=== PATIENT | female | born 1955 | race Caucasian/White ===

== ENCOUNTER 2016-09-26 03:16 | Inpatient (IN) | payer MEDICARE, BC ==
[2016-09-26] VITALS (361 sets, daily range): BP systolic 65–151; BP diastolic 42–85; PULSE 73–95; TEMP 97–98.8; O2SAT 82–100
[~2016-09-26] VITALS: Ht 162.6 cm; Wt 59.7 kg
[~2016-09-26 03:16] MED LIST: ASPIRIN 81M81 MG/TA2 PO; ASPIRIN E.C. 8181 MG PO; ATENOLOL; ATIVAN 1MG T1 MG/TAB PO; CIPRO 500MG TA500 MG PO; DILAUDID 2MG TAB2 MG PO; DILAUDID 4MG TAB4 MG PO; DULCOLAX S10 MG/SUPP RC; ELAVIL10 MG PO; ELAVIL100 MG PO; ELIQUIS 5MG PO; FENTANYL 25 MCG TD; FLAGYL500 MG PO; GAS-X80 MG PO; K-DUR20 MEQ PO; LASIX 40MG TABL40 MG PO; LEVAQUIN 5500 MG/TA1 PO; LEVOTHYROXINE PO; LINZESS290CAP PO; LOMOTIL 0.025 M1 TAB PO; LORAINT PO; MIRALAX PA17 GM/Dose PO; MIRALAX238G PO; MORPHINE 1515 MG/TAB PO; MULTIPLE VITAMI1 CAP PO; MULTIPLE VITAMI1 TA5 PO; MULTIPLE VITAMI1 TAB PO; MVI; NEXIUM 40MG40 MG PO; NEXIUM24HROTC PO; NORCO 325 MG-51 TAB PO; OXYCODONE; OXYCONTIN 80MG80 MG PO; PROBIOTIC-MAJOR PO; REGLAN 10MG/11 MG/ML PO; REGLAN 5MG T5 MG/TAB PO; ROXANOL 20MG20 MG/ML PO; ROXANOL 20MG20 MG/ML SL; ROXICODONE 55 MG/TAB PO; RT ALBUTER2.5 MG/0.5 IH; SENNA-LAX8.6 MG PO; SENOKOT8.6 MG PO; SYNTHROID 0.0.025 MG PO; SYNTHROID0.2 MG/TAB PO; TENORMIN 2525 MG/TAB PO; TENORMIN 5050 MG/TAB PO; TRANSDERM-0.5 MG/21 TD; ULTRAM 50MG TAB50 MG PO; ZANTAC 150MG T150 MG PO; ZOFRAN 4MG T4 MG/TAB PO; ZOFRAN8 MG PO; ZOLOFT 100MG100 MG PO; ZOLOFT 50MG50 MG PO; ZOLOFT50 MG PO
[2016-09-26 04:06] LABS: HEMOGLOBIN 12.4 g/dl (12.5-16.0); MEAN CELL VOLUME 94 fl (80.0-100.0); MEAN CORPUSCULAR HEMOGLOBIN 32 pg (27.0-31.0); MEAN CORPUSCULAR HGB CONC 34 g/dl (33.0-37.0); MEAN PLATELET VOLUME 10.6 fl (7.4-10.4); PLATELET COUNT 192 K/mm3 (130-400); RED BLOOD COUNT 3.87 M/mm3 (4.10-5.30); REDCELL DISTRIBUTION WIDTH-CV 14.2 % (11.5-14.5); WHITE BLOOD COUNT 4.4 K/mm3 (4.8-10.8)
[2016-09-26 04:09] LABS: HEMATOCRIT 36.5 % (37.0-47.0)
[2016-09-26 04:10] LABS: ADD PATHOLOGY DIFF REVIEW NO
[2016-09-26 04:19] LABS: ALBUMIN 2.7 gm/dL (3.5-5.0); BILIRUBIN,TOTAL 0.5 mg/dL (0.0-1.0); CREATININE, serum 1.32 mg/dL (0.52-1.25); POTASSIUM 3.5 mmol/L (3.4-5.0); TOTAL PROTEIN 5.2 gm/dL (6.4-8.2)
[2016-09-26 04:22] LABS: ADJUSTED CALCIUM 6.3 mg/dL (8.4-10.2); CALCIUM 5.3 mg/dL (8.4-10.2)
[2016-09-26 04:42] LABS: BAND 47 % (0-10); MYELOCYTE 1 % (0-0); NEUTROPHILS 19 % (42.0-75.2); TOTAL CELLS COUNTED 100
[2016-09-26 04:43] LABS: C-REACTIVE PROTEIN 14.1 mg/dL (0.0-0.9)
[2016-09-26 05:15] LABS: VENOUS BLOOD GAS BE -10.9 (-4-4); VENOUS BLOOD GAS SAO2 64.9 % (60-80); VENOUS BLOOD GAS SITE CENTRAL LINE
[2016-09-26 13:04] LABS: MEAN CORPUSCULAR HGB CONC 32 g/dl (33.0-37.0); MEAN PLATELET VOLUME 9.8 fl (7.4-10.4); PLATELET COUNT 105 K/mm3 (130-400); RED BLOOD COUNT 2.58 M/mm3 (4.10-5.30); REDCELL DISTRIBUTION WIDTH-CV 14.1 % (11.5-14.5)
[2016-09-26 13:52] LABS: ARTERIAL BLD GAS O2 SATURATION 98.5 % (92-100); ARTERIAL BLD GAS TCO2 CT 14.9; ARTERIAL BLOOD GAS BASE EXCESS -13.5 (-2-2); ARTERIAL BLOOD GAS HCO3 13.7 meq/L (22-26); ARTERIAL BLOOD GAS PHT 7.19 C (7.35-7.45)
[2016-09-26 13:53] LABS: ARTERIAL BLOOD GAS PO2 222.2 mmHg (80-100); ARTERIAL BLOOD GAS PO2T 222.2 (80-100); ARTERIAL BLOOD GAS pH 7.19 (7.35-7.45)
[2016-09-26 13:54] LABS: ABG VENTILATOR TIDAL VOLUME 500 mL; ATS? YES
[2016-09-26 13:55] LABS: ARTERIAL BLD GAS O2 SATURATION 98.7 % (92-100); ARTERIAL BLOOD GAS BASE EXCESS -9.3 (-2-2); ARTERIAL BLOOD GAS HCO3 14.3 meq/L (22-26); ARTERIAL BLOOD GAS PHT 7.38 C (7.35-7.45); ARTERIAL BLOOD GAS pH 7.38 (7.35-7.45); OXYHEMOGLOBIN 98.4 %
[2016-09-26 13:56] LABS: ABG VENTILATOR TIDAL VOLUME 500 mL; ARTERIAL BLOOD GAS PO2 252.6 mmHg (80-100); ARTERIAL BLOOD GAS PO2T 252.6 (80-100); ATS? YES
[2016-09-26 14:00] LABS: HEMATOCRIT 25.6 % (37.0-47.0); HEMOGLOBIN 8.2 g/dl (12.5-16.0); MEAN CELL VOLUME 99 fl (80.0-100.0); MEAN CORPUSCULAR HEMOGLOBIN 32 pg (27.0-31.0)
[2016-09-26 14:03] LABS: ADD PATHOLOGY DIFF REVIEW NO; WHITE BLOOD COUNT 1.9 K/mm3 (4.8-10.8)
[2016-09-26 14:20] LABS: BAND 46 % (0-10); METAMYELOCYTE 16 % (0-0); NEUTROPHILS 16 % (42.0-75.2); PLATELET ESTIMATE DECREASED (NORMAL)
[2016-09-26 14:23] LABS: TOTAL CELLS COUNTED 50; TOXIC GRANULATION PRESENT
[2016-09-26 14:52] LABS: CREATININE, serum 1.17 mg/dL (0.52-1.25); PHOSPHOROUS 3.5 mg/dL (2.5-4.5); POTASSIUM 3.6 mmol/L (3.4-5.0)
[2016-09-26 14:55] LABS: CALCIUM 4.1 mg/dL (8.4-10.2)
[2016-09-27] VITALS (1379 sets, daily range): BP systolic 94–144; BP diastolic 56–90; PULSE 81–88; TEMP 97.8–98.8; O2SAT 64–100
[2016-09-27 02:26] LABS: HEMATOCRIT 22.7 % (37.0-47.0)
[2016-09-27 03:46] LABS: HEMATOCRIT 26.4 % (37.0-47.0); HEMOGLOBIN 9.2 g/dl (12.5-16.0)
[2016-09-27 04:25] LABS: ALLEN TEST NO; ARTERIAL BLD GAS O2 SATURATION 97.3 % (92-100); ARTERIAL BLD GAS TCO2 CT 17.7; ARTERIAL BLOOD GAS HCO3 16.9 meq/L (22-26); ARTERIAL BLOOD GAS PHT 7.44 C (7.35-7.45); ARTERIAL BLOOD GAS PO2 109.2 mmHg (80-100); ARTERIAL BLOOD GAS PO2T 109.2 (80-100); ARTERIAL BLOOD GAS pH 7.44 (7.35-7.45); ATS? YES; OXYHEMOGLOBIN 96.6 %
[2016-09-27 05:41] LABS: MEAN CORPUSCULAR HGB CONC 35 g/dl (33.0-37.0); MEAN PLATELET VOLUME 10.6 fl (7.4-10.4); PLATELET COUNT 81 K/mm3 (130-400); RED BLOOD COUNT 2.91 M/mm3 (4.10-5.30); REDCELL DISTRIBUTION WIDTH-CV 14.9 % (11.5-14.5); WHITE BLOOD COUNT 2.1 K/mm3 (4.8-10.8)
[2016-09-27 05:44] LABS: ADD PATHOLOGY DIFF REVIEW NO; HEMOGLOBIN 9.2 g/dl (12.5-16.0); MEAN CELL VOLUME 89 fl (80.0-100.0); MEAN CORPUSCULAR HEMOGLOBIN 32 pg (27.0-31.0)
[2016-09-27 06:01] LABS: ALBUMIN 2.3 gm/dL (3.5-5.0); BILIRUBIN,TOTAL 0.8 mg/dL (0.0-1.0); CREATININE, serum 0.82 mg/dL (0.52-1.25); MAGNESIUM 1.8 mg/dL (1.6-2.3); PHOSPHOROUS 1.9 mg/dL (2.5-4.5); TOTAL PROTEIN 4.1 gm/dL (6.4-8.2)
[2016-09-27 06:08] LABS: BAND 34 % (0-10); NEUTROPHILS 24 % (42.0-75.2); TOTAL CELLS COUNTED 100
[2016-09-27 06:15] LABS: CALCIUM 4.6 mg/dL (8.4-10.2)
[2016-09-27 10:30] LABS: PH 5 (5-8); SQUAMOUS EPITHELIAL 0-2 /hpf; URINE APPEARANCE Clear; URINE BACTERIA None Seen /hpf; URINE BILIRUBIN Negative (NEGATIVE); URINE BLOOD 1+ (NEGATIVE); URINE COLOR Yellow; URINE GLUCOSE Negative (NEGATIVE); URINE KETONE 1+ (NEGATIVE); URINE UROBILINOGEN Negative (NEGATIVE)
[2016-09-27 14:00] LABS: HEMATOCRIT 25.5 % (37.0-47.0)
[2016-09-28] VITALS (263 sets, daily range): BP systolic 104–140; BP diastolic 51–87; PULSE 65–80; TEMP 96.9–99.7; O2SAT 93–98
[2016-09-28 06:22] LABS: MEAN CELL VOLUME 91 fl (80.0-100.0); MEAN CORPUSCULAR HGB CONC 34 g/dl (33.0-37.0); MEAN PLATELET VOLUME 11.5 fl (7.4-10.4); RED BLOOD COUNT 2.89 M/mm3 (4.10-5.30); REDCELL DISTRIBUTION WIDTH-CV 15.2 % (11.5-14.5); WHITE BLOOD COUNT 2.6 K/mm3 (4.8-10.8)
[2016-09-28 06:25] LABS: HEMATOCRIT 26.2 % (37.0-47.0); MEAN CORPUSCULAR HEMOGLOBIN 31 pg (27.0-31.0); PLATELET COUNT 64 K/mm3 (130-400)
[2016-09-28 06:26] LABS: ADD PATHOLOGY DIFF REVIEW NO
[2016-09-28 06:52] LABS: ADJUSTED CALCIUM 5.8 mg/dL (8.4-10.2); ALBUMIN 1.8 gm/dL (3.5-5.0); BILIRUBIN,TOTAL 0.6 mg/dL (0.0-1.0); CREATININE, serum 0.77 mg/dL (0.52-1.25); MAGNESIUM 1.5 mg/dL (1.6-2.3); PHOSPHOROUS 2.5 mg/dL (2.5-4.5); TOTAL PROTEIN 3.6 gm/dL (6.4-8.2)
[2016-09-28 07:02] LABS: POTASSIUM 2.7 mmol/L (3.4-5.0)
[2016-09-28 08:00] LABS: BAND 18 % (0-10); NEUTROPHILS 61 % (42.0-75.2); PLATELET ESTIMATE DECREASED (NORMAL); TOTAL CELLS COUNTED 100
[2016-09-28 08:01] LABS: TARGET CELLS 1+
[2016-09-29 01:47] VITALS: BP 98/50; PULSE 83; TEMP 98
[2016-09-29 05:38] LABS: MEAN CELL VOLUME 91 fl (80.0-100.0); MEAN CORPUSCULAR HGB CONC 34 g/dl (33.0-37.0); MEAN PLATELET VOLUME 11.3 fl (7.4-10.4); PLATELET COUNT 78 K/mm3 (130-400); RED BLOOD COUNT 3.06 M/mm3 (4.10-5.30); REDCELL DISTRIBUTION WIDTH-CV 15.3 % (11.5-14.5); WHITE BLOOD COUNT 4.8 K/mm3 (4.8-10.8)
[2016-09-29 05:45] LABS: HEMATOCRIT 27.9 % (37.0-47.0); HEMOGLOBIN 9.6 g/dl (12.5-16.0); MEAN CORPUSCULAR HEMOGLOBIN 31 pg (27.0-31.0)
[2016-09-29 05:59] LABS: CREATININE, serum 0.8 mg/dL (0.52-1.25); MAGNESIUM 1.5 mg/dL (1.6-2.3); PHOSPHOROUS 0.7 mg/dL (2.5-4.5); POTASSIUM 3.6 mmol/L (3.4-5.0)
[2016-09-29 06:08] LABS: CALCIUM 4.1 mg/dL (8.4-10.2)
[2016-09-29 06:22] VITALS: BP 104/62; PULSE 83; TEMP 97.4
[2016-09-29 09:23] VITALS: BP 123/84; PULSE 81; TEMP 97.7
[2016-09-29 13:38] VITALS: BP 127/70; PULSE 81; TEMP 97.5
[2016-09-29 17:32] VITALS: BP 115/72; PULSE 85; TEMP 98.2
[2016-09-29 22:02] VITALS: BP 121/69; BP 136/61; PULSE 76; PULSE 79; TEMP 98.2
[2016-09-30 02:18] VITALS: BP 121/73; PULSE 83; TEMP 98.2
[2016-09-30 05:18] VITALS: BP 93/50; PULSE 59; TEMP 98.2
[2016-09-30 06:43] LABS: MEAN CELL VOLUME 92 fl (80.0-100.0); MEAN CORPUSCULAR HGB CONC 33 g/dl (33.0-37.0); MEAN PLATELET VOLUME 11.4 fl (7.4-10.4); PLATELET COUNT 77 K/mm3 (130-400); RED BLOOD COUNT 3.12 M/mm3 (4.10-5.30); REDCELL DISTRIBUTION WIDTH-CV 15.2 % (11.5-14.5); WHITE BLOOD COUNT 3.7 K/mm3 (4.8-10.8)
[2016-09-30 06:45] LABS: HEMATOCRIT 28.6 % (37.0-47.0); HEMOGLOBIN 9.5 g/dl (12.5-16.0); MEAN CORPUSCULAR HEMOGLOBIN 30 pg (27.0-31.0)
[2016-09-30 07:03] LABS: ADJUSTED CALCIUM 6.1 mg/dL (8.4-10.2); ALBUMIN 1.8 gm/dL (3.5-5.0); BILIRUBIN,TOTAL 0.7 mg/dL (0.0-1.0); CREATININE, serum 0.76 mg/dL (0.52-1.25); MAGNESIUM 1.4 mg/dL (1.6-2.3); PHOSPHOROUS 2.7 mg/dL (2.5-4.5); POTASSIUM 3.3 mmol/L (3.4-5.0); TOTAL PROTEIN 3.7 gm/dL (6.4-8.2)
[2016-09-30 08:00] LABS: CALCIUM 4.3 mg/dL (8.4-10.2)
[2016-09-30 10:41] VITALS: BP 109/58; PULSE 86; TEMP 97
[2016-09-30 14:22] VITALS: BP 103/63; PULSE 79; TEMP 98.3
[2016-09-30 17:16] VITALS: BP 111/63; PULSE 80; TEMP 98.4
[2016-09-30 21:09] VITALS: BP 106/61; PULSE 77; TEMP 98.2
[2016-10-01 04:48] VITALS: BP 114/60; PULSE 72; TEMP 98.5
[2016-10-01 07:55] LABS: MEAN CELL VOLUME 92 fl (80.0-100.0); MEAN CORPUSCULAR HGB CONC 34 g/dl (33.0-37.0); MEAN PLATELET VOLUME 12.1 fl (7.4-10.4); PLATELET COUNT 78 K/mm3 (130-400); RED BLOOD COUNT 3.05 M/mm3 (4.10-5.30); REDCELL DISTRIBUTION WIDTH-CV 15.1 % (11.5-14.5); WHITE BLOOD COUNT 3.8 K/mm3 (4.8-10.8)
[2016-10-01 07:59] LABS: HEMATOCRIT 28.1 % (37.0-47.0); HEMOGLOBIN 9.5 g/dl (12.5-16.0); MEAN CORPUSCULAR HEMOGLOBIN 31 pg (27.0-31.0)
[2016-10-01 08:04] LABS: CREATININE, serum 0.75 mg/dL (0.52-1.25); MAGNESIUM 1.4 mg/dL (1.6-2.3); PHOSPHOROUS 2.1 mg/dL (2.5-4.5); POTASSIUM 3.1 mmol/L (3.4-5.0)
[2016-10-01 08:14] LABS: CALCIUM 4.1 mg/dL (8.4-10.2)
[2016-10-01 10:28] VITALS: BP 116/62; PULSE 79; TEMP 98.3
[2016-10-01 14:52] VITALS: BP 120/67; PULSE 80; TEMP 98.2
[2016-10-01 18:57] VITALS: BP 121/67; PULSE 78; TEMP 97.5
[2016-10-01] MEDS ORDERED: TUMS500 MG PO (20:00)
[2016-10-01] MEDS ORDERED: K-DUR 10 MEQ T10 MEQ PO (20:13)
== END 2016-10-01 20:40 | disposition home or self-care (01) | DRG 853 ==
LOC: COL.ER 03:16 → ICU 06:32 → SURG 06:32 → COL.ER 06:32 → ICU 06:32 → SURG 09-28 10:50 → ICU 09-28 10:50 → SURG 09-30 17:14
PROVIDERS: Anesthesiology Critical Care Medicine; Emergency Medicine; Internal Medicine Pulmonary Disease; Surgery
PROC: 0DNA0ZZ Release Jejunum, Open Approach (ICD-10-PCS; 2016-09-26)
PROC: 0WJP0ZZ Inspection of Gastrointestinal Tract, Open Approach (ICD-10-PCS; 2016-09-26)
PROC: 5A1935Z Respiratory Ventilation, Less than 24 Consecutive Hours (ICD-10-PCS; 2016-09-26)
PROC: 0DNB0ZZ Release Ileum, Open Approach (ICD-10-PCS; principal; 2016-09-26 08:30)
DX: A41.9 Sepsis, unspecified organism (principal); K55.029 Acute infarction of small intestine, extent unspecified; K55.32 Stage 2 necrotizing enterocolitis; K43.1 Incisional hernia with gangrene; K56.5 Intestinal adhesions [bands] with obstruction (postinfection); C25.9 Malignant neoplasm of pancreas, unspecified; E87.2 Acidosis; E87.1 Hypo-osmolality and hyponatremia; C78.7 Secondary malignant neoplasm of liver and intrahepatic bile duct; C79.51 Secondary malignant neoplasm of bone; E46 Unspecified protein-calorie malnutrition; I10 Essential (primary) hypertension; D64.9 Anemia, unspecified; E87.6 Hypokalemia; E83.42 Hypomagnesemia; E83.51 Hypocalcemia; E83.39 Other disorders of phosphorus metabolism; F17.210 Nicotine dependence, cigarettes, uncomplicated
CPT/HCPCS: A4217; A4315; C9113; J0330; J0610; J0694; J1100; J1170; J1644; J1720; J1885; J2270; J2405; J2543; J2550; J2704; J2710; J3010; J3475; J3480; J7030; J7050; J7060; J7120; P9016; P9047; Q9967